=== PATIENT | male | born 1990 | race Caucasian/White ===

== ENCOUNTER 2018-06-29 13:22 | Emergency (ER) | payer SELFPAY ==
[~2018-06-29] VITALS: Ht 167.6 cm; Wt 68.2 kg
[2018-06-29] MEDS ORDERED: CEPHALEXIN MONOHYDRATE 500 MG CAPSULE PO ONE (14:30)
[2018-06-29] MEDS ORDERED: PERTUSS(ACELL),DIPH,TET VAC/PF 0.5 ML VIAL IM ONE (14:30)
[2018-06-29] MEDS ORDERED: CIPROFLOXACIN HCL 250 MG TABLET PO ONE (14:30)
[2018-06-29] MEDS ORDERED: NAPROXEN 250 MG TABLET PO ONE (14:30)
[2018-06-29 15:55] VITALS: BP 127/73
== END 2018-06-29 16:07 | disposition home or self-care (01) ==
LOC: EMS 13:24
DX: T63.511A Toxic effect of contact with stingray, accidental (unintentional), initial encounter (principal); L03.116 Cellulitis of left lower limb; Z88.6 Allergy status to analgesic agent; Y92.89 Other specified places as the place of occurrence of the external cause
CPT/HCPCS: 90471; 90715; 99284